=== PATIENT | female | born 1960 | race Caucasian/White ===

== ENCOUNTER → 2023-01-23 | Outpatient (CLI) | payer OTHER, SELFPAY ==
[2023-01-23 16:10] LABS: Hematocrit 41.2 % (37-47); Hemoglobin 13.7 g/dL (12.0-15.0); Mean Corp Hgb Conc 33.3 g/dL (32-36); Mean Corpuscular Hgb 31.4 pg (27.0-32.0); Mean Corpuscular Volume 94.5 fL (81-99); Mean Platelet Vol. 10.4 fl (6.2-12.0); Platelet Count 216 K/mm3 (150-450); RBC Distribution Width CV 12.5 % (11.6-14.6); RBC Distribution Width SD 43.2 fl (35.1-43.9); Red Blood Count 4.36 M/mm3 (4.2-5.4); White Blood Count 7.8 K/mm3 (4.4-11.0)
[2023-01-23 16:41] LABS: AST(SGOT) 38 U/L (15-37); Alanine Aminotransfer ALT/SGPT 58 U/L (13-56); Albumin, Serum 3.7 g/dL (3.2-5.0); Alkaline Phosphatase 64 U/L (45-117); Anion Gap 6 (5-15); BUN 11 mg/dL (7-18); BUN/Creat Ratio 11.9 RATIO (10-20); Calcium,Total 9.1 mg/dL (8.5-10.1); Chloride 107 mmol/L (98-107); Creatinine, Serum 0.92 mg/dL (0.55-1.02); EST Glomerular Filtration Rate 66 mL/min (>60); Est Glom Filt Rate - Afr Amer 79 mL/min (>60); Globulin 3.6 g/dL (2.2-4.2); Glucose 91 mg/dL (74-106); Potassium 3.8 mmol/L (3.5-5.1); Protein, Total 7.3 g/dL (6.4-8.2); Sodium Level 141 mmol/L (136-145)
[2023-01-24 07:09] LABS: Absolute Lymphocyte Count 3.26 X10^3/uL (0.83-4.51); Absolute Neutrophil Count 3.7 X10^3/uL (2.0-7.7); Basophil# 0.06 X10^3/uL; Basophil% 0.7 % (0-1); Eosinophil# 0.21 X10^3/uL; Eosinophils% 2.6 % (0-5); Lymphocyte # 3.26 X10^3/ul (0.83-4.51); Lymphocyte % 40.3 % (19-41); Monocyte# 0.78 X10^3/uL; Monocyte% 9.7 % (0-10); NRBC Flagged by Analyzer 0 % (0-5); Neutrophil # 3.73 X10^3/uL (2.7-7.7); Neutrophil % 46.2 % (47-70)
== END | disposition home or self-care (01) ==
LOC: LAB 15:57
PROVIDERS: PCP Family Medicine; Referring Provider Student in an Organized Health Care Education/Training Program; Visit Provider Student in an Organized Health Care Education/Training Program
DX: N95.1 Menopausal and female climacteric states (principal)
CPT/HCPCS: 36415; 80053; 85025; 85027

== ENCOUNTER 2025-07-20 07:31 | Emergency (ER) | payer OTHER, SELFPAY ==
[2025-07-20 07:31] VITALS: BP 152/81; PULSE 95; RESP 14; TEMP 36.1; O2SAT 98; BMI 43.4
[2025-07-20 07:51] VITALS: BP 142/78; PULSE 81; RESP 11; TEMP 36.8; O2SAT 99
--- NOTE | 2025-07-20 07:58 | CT_ITS ---
PROCEDURE: BRAIN/HEAD WITHOUT CONTRAST 07/20/2025 REASON FOR EXAM: HEADACHE, HTN TECHNIQUE: Procedure Code: CTBR Modality: CT Procedure: BRAIN/HEAD WITHOUT CONTRAST Coronal and Sagittal reconstruction series were provided. One or more dose reduction techniques were used (e.g., Automated exposure control, adjustment of the mA and/or kV according to patient size, use of iterative reconstruction technique. RADIATION DOSE SUMMARY: CTDlvol: 44.99 mGy DLP: 745.49 mGycm COMPARISON: None FINDINGS: There is no evidence of acute intracranial hemorrhage or infarction. There are no abnormal intracranial masses or mass effects. The ventricular system and basilar cisterns are unremarkable. The skull base and calvarium are normal. The paranasal sinuses and mastoid air cells are unremarkable. The intraorbital contents are normal. The visualized extracranial soft tissues are normal. CT/Brain/Head without Contrast IMPRESSION: Normal CT brain without IV contrast. Reading Location: [id number]
--- NOTE | 2025-07-20 07:58 | CT_ITS ---
PROCEDURE: CTA HEAD AND NECK W/ CONTRAST 07/20/2025 REASON FOR EXAM: HEADACHE FOR 1 MONTH, HTN TECHNIQUE: Procedure Code: CTCTA.HDNCK Modality: CT Procedure: CTA HEAD AND NECK W/ CONTRAST Multiplanar Sagittal and Coronal images were obtained. 3D post processing was performed CONTRAST: Isovue 370 VOLUME: 100 mL One or more dose reduction techniques were used (e.g., Automated exposure control, adjustment of the mA and/or kV according to patient size, use of iterative reconstruction technique). RADIATION DOSE SUMMARY: CTDlvol: 39.95 mGy DLP: 662.98 mGycm COMPARISON: CT head without contrast, same day. FINDINGS: Aortic Arch: There is minimal calcific vascular disease of the aortic arch. Brachiocephalic and Subclavians: Normal. RIGHT Carotid: Right CCA: Normal. Right ICA: There is mild calcific vascular disease of the proximal cervical ICA. There is calcified plaque of the cavernous portion of the ICA. Maximum stenosis (NASCET): Less than 50 % Right ECA: Normal. LEFT Carotid: Left CCA: Normal. Left ICA: There is mild calcified plaque of the proximal cervical ICA. Maximum stenosis (NASCET): Less than 50 % Left ECA: Normal. Vertebrals: Codominant. RIGHT Vertebral: Normal. LEFT Vertebral: Normal. Aneurysm or avm: There are no aneurysms greater than 4 mm. No evidence of vascular malformations. Anterior cerebral arteries: Normal. Middle cerebral arteries: Normal. Basilar artery: Normal. Posterior cerebral arteries: Normal. Other major branches of the posterior circulation: There is a right posterior communicating artery. Major venous structures: Normal. Other findings: Neck: There are no soft tissue abnormalities. Lungs: The lung apices are unremarkable. Bones: There is multilevel degenerative disc disease of the cervical spine. CT/CTA Head AND Neck W/ Contrast IMPRESSION: 1. There is minimal calcified plaque in both proximal cervical internal caroti d arteries and in the cavernous portion of the right internal carotid artery without significant stenosis. 2. Other findings as noted. Reading Location: [facility]
--- NOTE | 2025-07-20 07:59 | EKG12_ITS ---
Test Reason : HYPERTENSION Blood Pressure : */* mmHG Vent. Rate : 74 BPM Atrial Rate : 74 BPM P-R Int : 128 ms QRS Dur : 86 ms QT Int : 412 ms P-R-T Axes : 56 28 87 degrees QTcB Int : 457 ms Normal sinus rhythm Nonspecific ST and T wave abnormality Abnormal ECG Confirmed by NICA PERKINS, ALHAJI ([id number]), social media editor MINO ROMERO ([id number]) on 07/21/2025 9:14:21 AM Referred By: Confirmed By: ALHAJI YOUSIF MD
--- NOTE | 2025-07-20 08:00 | EDS_ITS ---
HPI History of Present Illness Chief Complaint: Hypertension Detail of Chief Complaint: Headache and hypertension Informant: patient Narrative Narrative: Patient presents to the emergency department with complaint of headache that has been ongoing for at least a month. She been having some issues with blood pressure since about November. Has tried multiple blood pressure medications. Currently on lisinopril 20 mg twice daily. Last evening her blood pressure got up to 199/100. She did take her lisinopril this morning. She has been taken ibuprofen and Tylenol which seems to at times help her headache. Describes a lot of heaviness and pressure to the backside of her head. She denies photophobia. She has had no nausea or vomiting. She denies falls or head injuries. He is not anticoagulated. Denies urinary symptoms. Denies chest pain or shortness of breath. No family history of brain tumors or aneurysms. She is a smoker. Moderate alcohol drinker [facility] Home Medications ?Medication ?Instructions ?Recorded ?Last Taken ?Type Venlafaxine Hcl 75 mg PO DAILY 10/07/13 04/0 10/09 History omeprazole 20 mg capsule,delayed 20 mg PO DAILY 10/29/16 05:30 History release acetaminophen 500 mg tablet 1,000 mg (2 x 500 mg) PO Q 8 ##60 10/31/16 Unknown Rx albuterol sulfate 90 mcg/actuation 2 puff inhalation Q 6H #8.5 grams 09/28/18 Unknown Rx aerosol inhaler (ProAir HFA) azithromycin 250 mg tablet See Rx Instructions PO .COM PLEX #6 09/28/18 Unknown Rx tabs prednisone 20 mg tablet 20 mg PO DAILY #12 tabs 11/11 Unknown Rx Allergy/AdvReac Type Severity Reaction Status Date / Time Penicillins Allergy Intermediate Hives Verified 07/20/25 07:33 Sulfa (Sulfonamide Allergy Intermediate Swelling Verified 07/20/25 07:33 Antibiotics) hydrocodone bitartrate (From AdvReac Intermediate VOMITS Verified 07/20/25 07:33 Vicodin) Surgical History History of hysterectomy History of appendectomy Social History Smoking Status: Current every day smoker tobacco type: cigarettes ROS ROS ED ROS Narrative Hypertension Review of Systems ROS Unobtainable: other Constitutional Constitutional ED: Reports lethargy; Denies chills, fever(s), sweats or weight loss Eyes Eyes: Denies blurry vision, change in vision or diplopia ENT ENT ED: Denies rhinorrhea or sore throat Cardiovascular Cardiovascular: Denies chest pain, orthopnea or racing heartbeat Respiratory/Chest Respiratory/Chest: Denies cough, dyspnea, dyspnea on exertion, orthopnea or s putum Gastrointestinal Gastrointestinal: Denies abdominal pain, diarrhea, nausea or vomiting Genitourinary Genitourinary ED: Denies dysuria, hematuria or urinary frequency Musculoskeletal Musculoskeletal: Denies arthralgias, back pain, myalgias or neck pain Integumentary Denies abscess, Abrasions or rash Neurologic Neurologic: Reports headache(s); Denies weakness Psychiatric Psychiatric: Denies anxiety, depression or suicidal thoughts Endocrine Endocrinology: Denies polydipsia, polyphagia or polyuria Hematologic/Lymphatic Hematologic/Lymphatic: Denies easy bleeding, easy bruising or lymphadenopathy Allergic/Immunologic Allergic/Immunologic ED: Denies mouth swelling, tongue swelling or urticaria EXAM Physical Exam Const Vital Signs: 07/20/25 07:31 07/20/25 07:51 Temperature 96.9 F L 98.2 F Temperature Source Temporal Oral Pulse Rate 95 81 Respiratory Rate 14 11 L Blood Pressure 152/81 H 142/78 H Blood Pressure Mean 104 99 Pulse Ox 98 99 Oxygen Delivery Method Room Air Room Air Positive well nourished and well developed General Appearance ED: well developed and NAD HEENT Reports TM's clear and moist mucous membranes normocephalic and atraumatic; Negative for trauma or tenderness Tympanic Membrane ED: Yes TM's clear Eyes PERRL and EOMs intact bilaterally General Eye ED: Negative for pale conjunctiva or scleral icterus Neck no lymphadenopathy, supple and no JVD General: Negative for tenderness Chest Wall inspection of chest normal and palpation of chest normal Chest: Negative for tenderness Resp normal respiratory effort and clear to auscultation bilaterally Effort and Inspection: Negative for respiratory distress or pain with movement Auscultation: Negative for rhonchi, wheezes or diminished lung sounds Cardio regular rate, regular rhythm, S1 normal heart sound, S2 normal heart sound and no murmurs Peripheral Pulses: pulses 2+ throughout GI normal to inspection, nondistended, normoactive bowel sounds, soft to palpation, non-tender, non-distended and no masses Back/Spine no CVA tenderness and no thoracic nor lumbar tenderness Extremity normal to inspection General Extremety ED: Negative for edema General Extremity: Negative for edema Neuro oriented x3, CN's II-XII intact bilaterally, no sensory deficits noted and gait normal Neuro Narrative: Finger-nose and heel lake testing within normal limits, negative Romberg, negative for drift, fundi benign Sensorium / Orientation: awake, alert, oriented to person, oriented to place and oriented to time Motor Exam: strength 5/5 throughout and strength abnormal Psych mental status grossly normal Skin no rashes or lesions noted and no wounds MDM MDM MDM Narrative Medical decision making narrative: Patient presents with headache and elevated blood pressures for over a month. Currently taking lisinopril 20 mg twice a day. Clinically looks well on exam. EKG obtained on arrival showed a sinus rhythm with ventricular rate of [address] changes. CBC with differential showed a white count of 7.2 with hemoglobin 13 and platelet count of 220. Chemistries were unremarkable. BUN 12 and creatinine 1.06. Troponin was normal at 9. Urinalysis without signs of infection. CT brain was unremarkable and CTA head and neck without significant findings. Discussed all results with patient and her . At this point I do not feel she needs any further testing. Her most recent blood pressure was 142/78 without any treatment in the department. She tells me she has been having neck pain issues and has been seeing a chiropractor. She is wondering if the headache and the hypertension may be related the pain. At this point she will be discharged to home and advised to follow-up with her primary care physician within next 3 to 5 days. Lab Data Attestation: I reviewed the patient's lab results. Labs: Laboratory Results - last 24 hr 07/20/25 07/20/25 08:10 09:28 WBC 7.2 RBC 4.26 Hgb 13.0 Hct 39.6 MCV 93.0 MCH 30.5 MCHC 32.8 RDW Std Deviation 41.3 RDW Coeff of Jt 12.0 Plt Count 220 MPV 10.7 Immature Gran % (Auto) 0.400 Neut % (Auto) 51.6 Lymph % (Auto) 35.1 [place] % (Auto) 9.9 Eos % (Auto) 2.4 Baso % (Auto) 0.6 Absolute Neuts (auto) 3.7 Absolute Lymphs (auto) 2.53 Nucleated RBC % 0 ESR 5 Sodium 139 Potassium 3.9 Chloride 103 Carbon Dioxide 23.8 Anion Gap 13 BUN 12 Creatinine 1.06 Estim Creat Clear Calc 61.91 Est GFR (MDRD) Non-Af 59 L BUN/Creatinine Ratio 10.8 Glucose 121 H Calcium 8.9 Troponin T High Sens 9 Urine Color Yellow Urine Clarity Clear Urine pH 8.0 Ur Specific [place] 1.010 Urine Protein 15 H Urine Glucose (UA) Normal Urine Ketones Negative Urine Occult Blood Negative Urine Nitrite Negative Urine Bilirubin Negative Urine Urobilinogen Normal Ur Leukocyte Esterase Negative Radiography Diagnostic Testing: Clinical Impression(s) from Imaging Studies Brain CT 07/20/25 07:58 IMPRESSION: Normal CT brain without IV contrast. Reading Location: [facility] Head/Neck CTA 07/20/25 07:58 IMPRESSION: 1. There is minimal calcified plaque in both proximal cervical internal carotid arteries and in the cavernous portion of the right internal carotid artery without significant stenosis. 2. Other findings as noted. Reading Location: [facility] EKG Initial EKG: Attestation: I personally reviewed and interpreted this EKG as follows: Comments: Sinus rhythm with rate of [address] changes Discharge Plan Triage Chief Complaint: Hypertension ED Provider: Alexandre Ramirez Dx/Rx/DC Orders Clinical Impression: Headache, Hypertension Instructions: ED Headache, Tension, ED Hypertension, Established Prescriptions: No Action azithromycin 250 mg tablet See Rx Instructions PO .COMPLEX Qty: 6 0RF Dose Instruction: 500 mg day 1, then 250 mg days 2-4 PO Rx Instructions: 500 mg day 1, then 250 mg days 2-4 PO prednisone 20 mg tablet 20 mg PO DAILY Qty: 12 0RF Rx Instructions: 2 pills daily x 3 days, then 1 pill daily x 4 days, then 1/2 pill daily x 4 days. ProAir HFA 90 mcg/actuation HFA aerosol inhaler 2 puff Inhalation Q6H Qty: 8.5 0RF Rx Instructions: administer with spacer omeprazole 20 MG capsule 20 mg PO DAILY Patient Comments: REFLUX Venlafaxine Hcl 75 MG tablet 75 mg PO DAILY Patient Comments: antidepressant acetaminophen 500 MG tablet 1,000 mg PO Q8 Qty: 60 0RF Primary Care Provider: Juan Berry Referrals: Juan Berry MD [Primary Care Provider, Medical] - 3-5 Days Print Language: [place] Citizen Disposition Disposition: Home, Self Care
[2025-07-20] MEDS: 0.9% Normal Saline (1000mL) 1,000 ML 150 ML IV (08:13)
[2025-07-20 08:27] LABS: Hematocrit 39.6 % (37-47); Hemoglobin 13.0 g/dL (12.0-15.0); Immature Granulocytes Count 0.030 X10^3/uL (0.0-0.0); Mean Corp Hgb Conc 32.8 g/dL (32-36); Mean Corpuscular Volume 93.0 fL (81-99); Mean Platelet Vol. 10.7 fl (6.2-12.0); NRBC Flagged by Analyzer 0 % (0-5); Platelet Count 220 K/mm3 (150-450); RBC Distribution Width CV 12.0 % (11.6-14.6); RBC Distribution Width SD 41.3 fl (35.1-43.9); Red Blood Count 4.26 M/mm3 (4.2-5.4); White Blood Count 7.2 K/mm3 (4.4-11.0)
[2025-07-20 08:46] LABS: Troponin T High Sensitivity 9 ng/L (<=14)
[2025-07-20 08:48] LABS: Anion Gap 13 (5-15); BUN 12 mg/dL (4-19); BUN/Creat Ratio 10.8 RATIO (10-20); Calcium,Total 8.9 mg/dL (7.6-11.0); Carbon Dioxide 23.8 mmol/L (21.0-32.0); Chloride 103 mmol/L (98-108); Estimated Creatinine Clearance 61.91 ml/min (50-250); Glucose 121 mg/dL (70-99); Potassium 3.9 mmol/L (3.3-5.1)
[2025-07-20 09:31] VITALS: BP 108/75; PULSE 80; RESP 14; O2SAT 99
[2025-07-20 09:37] LABS: Mucous, Urine 0 SEEN /hpf (<or=2+); Red Blood Cells-Urine 0 SEEN /hpf (0-5)
[2025-07-20 09:38] LABS: Color, Urine Yellow (Yellow); Glucose, Dipstick Normal (Normal); Ketone-Dipstick Negative (Negative); Leukocyte Esterase-Dipstick Negative /ul (Negative); Nitrite-Dipstick Negative (Negative); Occult Blood-Urine Negative /ul (Negative); Protein-Dipstick 15 mg/dl (Negative); Specific Gravity, Urine 1.010 (1.002-1.030); Urine Bilirubin Dipstick Negative (Negative)
[2025-07-20 09:49] LABS: Squamous Epithelial Cells - UA 0-5 SEEN /hpf (5-10)
[2025-07-20 10:19] VITALS: BP 108/75; PULSE 80; RESP 14; TEMP 36.6; O2SAT 99
== END 2025-07-20 10:20 | disposition home or self-care (01) ==
PROVIDERS: Emergency Provider Emergency Medicine; PCP Family Medicine; Visit Provider Emergency Medicine
DX: R51.9 Headache, unspecified (principal); I10 Essential (primary) hypertension; F17.210 Nicotine dependence, cigarettes, uncomplicated; Z79.899 Other long term (current) drug therapy
CPT/HCPCS: 70450; 70496; 70498; 80048; 81001; 84484; 85025; 85652; 93005; 96360; 96361; 99284; Q9967; A4216